=== PATIENT | female | born 1950 | race Caucasian/White ===

== ENCOUNTER 2018-04-29 13:28 | Emergency (ER) | payer MEDICARE, MEDICAID ==
[~2018-04-29] VITALS: Ht 162.6 cm; Wt 81.6 kg
[2018-04-29 13:30] VITALS: BP_SYST 210
--- NOTE | 2018-04-29 13:30 | NUR ---
Patient triaged and placed in waiting room. VSS and patient appears in no acute distress at this time. Accompanied by SELF, awaiting available bed, and MD notified of need for MSE.
--- NOTE | 2018-04-29 15:05 | NUR ---
Patient to ER bed 2 to gown for evaluation. Side rails up. Report given to Pee MONACO.
--- NOTE | 2018-04-29 15:15 | NUR ---
Pt presents to ER c/o vomiting, abdominal pain, and diarrhea since yesterday. Pt reports current pain level 5/10 on pain scale. Pt reports increased stress at the moment pertaining to her family. Pt denies chest pain and sob. Pt AOX4, ambulatory, no signs of respiratory distress, respirations even and unlabored, speaking full sentences.
[2018-04-29 16:20] LABS: CREATININE 0.85 mg/dL (0.55-1.30); POTASSIUM 4.3 mmol/L (3.5-5.1)
[2018-04-29 16:24] LABS: TOTAL BILIRUBIN 0.5 mg/dL (0.0-1.0)
[2018-04-29 16:34] LABS: HEMATOCRIT 45.6 % (36-48); HEMOGLOBIN 14.7 g/dL (12.0-16.0); MEAN CORPUSCULAR HEMOGLOBIN 28 pg (27-31); MEAN CORPUSCULAR HGB CONC 32 % (32-36); MEAN CORPUSCULAR VOLUME 86 fL (79.0-98.0); PLATELET COUNT (AUTO) 278 K/uL (130-430); RED BLOOD CELL COUNT(AUTO) 5.27 MIL/uL (4.2-6.2); WHITE BLOOD COUNT (AUTO) 9.2 K/uL (4.8-10.8)
[2018-04-29] MEDS ORDERED: NACL 0.9% 1,000 ML IV ONE (16:45)
--- NOTE | 2018-04-29 17:00 | NUR ---
# 22 gauge angiocath placed to LAC. Use of asceptic technique. Opsite placed over site. Blood return noted. Flushed with 10 cc of normal saline. No evidence of infiltration noted. Patient tolerated well.
--- NOTE | 2018-04-29 17:05 | NUR ---
Medicated per MD orders. IVF infusing with no s/s of infiltration at this time. Will continue to monitor
--- NOTE | 2018-04-29 17:10 | NUR ---
Dr. Thompson at bedside speaking with pt.
--- NOTE | 2018-04-29 17:19 | NUR ---
Dr. Thompson notified about pt's BP of 209/124 and HR 100. Verbal orders received to give 0.2mg of Clonidine PO.
[2018-04-29] MEDS ORDERED: cloNIDine HCL 0.1 MG TABLET ONE (17:25)
[2018-04-29] MEDS ORDERED: cloNIDine HCL 0.1 MG TABLET PO ONE (17:30)
[2018-04-29 17:44] LABS: BILIRUBIN,URINE NEGATIVE (NEGATIVE); BLOOD, URINE 1+ (NEGATIVE); CLARITY/URINE CLEAR (CLEAR); COLOR,URINE YELLOW (YELLOW); GLUCOSE,URINE NEGATIVE (NEGATIVE); KETONES,URINE NEGATIVE (NEGATIVE); LEUKOCYTE ESTERASE ,URINE NEGATIVE (NEGATIVE); NITRITE, URINE NEGATIVE (NEGATIVE); PH,URINE 7.5 (5.0-8.0); PROTEIN URINE NEGATIVE (NEGATIVE); UROBILINOGEN,URINE 0.2 (0.2-1.0)
[2018-04-29 17:49] LABS: BACTERIA,URINE FEW /HPF (None Seen); RBC,URINE 0-3 /HPF (0-3); WBC,URINE 0-3 /HPF (0-3)
[2018-04-29 17:52] LABS: BAND % (MANUAL) 1 % (0-6); BASOPHILS % (MANUAL) 0 % (0-2); EOSINOPHILS % (MANUAL) 0 % (0-7); LYMPHOCYTES % (MANUAL) 6 % (20-46); MONOCYTES % (MANUAL) 5 % (0-11)
--- NOTE | 2018-04-29 18:00 | NUR ---
Dr. Thompson at bedside speaking with pt discussing lab and diagnostic results.
[2018-04-29 18:25] VITALS: BP_SYST 201
--- NOTE | 2018-04-29 18:25 | NUR ---
Patient given written and verbal discharge instructions and verbalizes understanding. ER MD discussed with patient the results and treatment provided. Patient in stable condition. ID arm band removed. IV catheter removed intact and dressing applied, no active bleeding. Rx of Ativan & Zofran given. Patient educated on pain management and to follow up with PMD. Pain Scale 0/10. Opportunity for questions provided and answered. Medication side effect fact sheet provided. Dr. Thompson aware of pt's discharge vital signs and has given verbal orders to discharge pt as he states elevated BP may be due to anxiety and stress. Pt asymptomatic not complaining of any pain at the moment.
== END 2018-04-29 18:25 | disposition home or self-care (01) ==
LOC: SED 13:28
DX: K29.60 Other gastritis without bleeding (principal); F43.9 Reaction to severe stress, unspecified; F41.8 Other specified anxiety disorders
CPT/HCPCS: 36415; 80053; 81000; 83690; 85007; 85027; 96360; 99284; J7030

== ENCOUNTER 2018-09-24 08:11 | Emergency (ER) | payer MEDICARE, MEDICAID ==
[~2018-09-24] VITALS: Ht 162.6 cm; Wt 86.2 kg
[2018-09-24 08:11] VITALS: BP_SYST 203
--- NOTE | 2018-09-24 08:11 | NUR ---
BROUGHT BACK TO BED #3 AND TRIAGED. REPORT GIVEN TO XAVIER
--- NOTE | 2018-09-24 08:30 | NUR ---
ER Dr. Daniels at bedside examining patient.
--- NOTE | 2018-09-24 08:31 | NUR ---
Pt c/o n/v/d since midnight last night and "wasn't sure what she ate to make it happen." Pt also c/o right sided pain 11/21. No other complaints or injuries per pt or noted.
[2018-09-24] MEDS ORDERED: PIPERACILLIN/TAZO 3.38 GM in NS 50 ML IV ONE (09:00)
[2018-09-24] MEDS ORDERED: NACL 0.9% 1,000 ML IV ONE (09:00)
[2018-09-24] MEDS ORDERED: ONDANSETRON HCL 4 MG/2 ML VIAL IVP ONE (09:00)
[2018-09-24] MEDS ORDERED: PANTOPRAZOLE SODIUM 40 MG/VIAL (PROTONIX) IVP ONE (09:00)
[2018-09-24] MEDS ORDERED: PIPERACILLIN/TAZOBACTAM 3.375 GM/VIAL (ZOSYN) IV ONE (09:15)
[2018-09-24 09:19] LABS: HEMATOCRIT 46.2 % (36-48); HEMOGLOBIN 15.5 g/dL (12.0-16.0); MEAN CORPUSCULAR HEMOGLOBIN 28 pg (27-31); MEAN CORPUSCULAR HGB CONC 34 % (32-36); MEAN CORPUSCULAR VOLUME 85 fL (79.0-98.0); RED BLOOD CELL COUNT(AUTO) 5.46 MIL/uL (4.2-6.2); WHITE BLOOD COUNT (AUTO) 8.8 K/uL (4.8-10.8)
[2018-09-24 09:20] LABS: BASOPHILS % (AUTO) 0.3 % (0.0-2.0); EOSINOPHILS % (AUTO) 0.1 % (0.0-4.0); LYMPHOCYTES # (AUTO) 0.8 K/uL (1.0-5.5); LYMPHOCYTES % (AUTO) 8.6 % (20.5-51.5); MONOCYTES # (AUTO) 0.5 K/uL (0.0-1.0); MONOCYTES % (AUTO) 5.6 % (1.7-9.3); NEUTROPHILS # (AUTO) 7.5 K/uL (1.8-7.7); NEUTROPHILS % (AUTO) 85.4 % (40.0-70.0); PLATELET COUNT (AUTO) 234 K/uL (130-430)
--- NOTE | 2018-09-24 09:29 | NUR ---
Pt off unit to radiology
[2018-09-24 09:30] LABS: CALCIUM 8.7 mg/dL (8.4-11.0); CREATININE 0.96 mg/dL (0.55-1.30); POTASSIUM 3.9 mmol/L (3.5-5.1)
[2018-09-24 09:31] LABS: PROTHROMBIN TIME 10.5 SECS (9.5-12.5)
[2018-09-24 09:35] LABS: ALBUMIN 4.1 g/dL (3.4-4.8); TOTAL BILIRUBIN 0.7 mg/dL (0.0-1.0)
--- NOTE | 2018-09-24 09:43 | NUR ---
Pt return to unit from radiology. Pt tolerated well.
--- NOTE | 2018-09-24 10:00 | NUR ---
Pt states relief in nausea, no other complaints at this time.
[2018-09-24 10:44] LABS: BILIRUBIN,URINE NEGATIVE (NEGATIVE); BLOOD, URINE 1+ (NEGATIVE); CLARITY/URINE CLEAR (CLEAR); COLOR,URINE YELLOW (YELLOW); GLUCOSE,URINE NEGATIVE (NEGATIVE); KETONES,URINE NEGATIVE (NEGATIVE); LEUKOCYTE ESTERASE ,URINE NEGATIVE (NEGATIVE); NITRITE, URINE NEGATIVE (NEGATIVE); PH,URINE 6.5 (5.0-8.0); PROTEIN URINE TRACE (NEGATIVE); UROBILINOGEN,URINE 0.2 (0.2-1.0)
[2018-09-24] MEDS ORDERED: DIPHENOXYLATE HCL/ATROP SULF 2.5 MG TAB PO ONE (10:45)
[2018-09-24] MEDS ORDERED: cloNIDine HCL 0.1 MG TABLET PO ONE (10:45)
--- NOTE | 2018-09-24 10:45 | NUR ---
Pt noted with SBPs 180s, states, "It's normal for me because of anxiety. It's happened to me before. I take natural methods at home to lower BP." Pt given clonidine per MD order.
[2018-09-24 11:05] LABS: BACTERIA,URINE FEW /HPF (None Seen); MUCUS,URINE None Seen /LPF (None Seen); RBC,URINE 0-3 /HPF (0-3); WBC,URINE 0-3 /HPF (0-3)
[2018-09-24 12:01] VITALS: BP_SYST 184
--- NOTE | 2018-09-24 12:05 | NUR ---
Patient given written and verbal discharge instructions and verbalizes understanding. ER MD discussed with patient the results and treatment provided. Patient in stable condition. MD also okay with patient's elevated BP, which patient states "it is normal" for her and she uses "natural methods" to treat it at home. ID arm band removed. IV catheter removed intact and dressing applied, no active bleeding. Rx of norco, lomotil, and zofran given. Patient educated on pain management and to follow up with PMD. Pain Scale 0/10. Opportunity for questions provided and answered. Medication side effect fact sheet provided.
== END 2018-09-24 12:05 | disposition home or self-care (01) ==
LOC: SED 08:11
DX: K52.9 Noninfective gastroenteritis and colitis, unspecified (principal)
CPT/HCPCS: 36415; 71045; 74176; 80053; 81000; 83605; 83690; 85025; 85610; 87040; 93005; 96365; 96375; 99284; C9113; J2405; J2543; J7030

== ENCOUNTER 2020-03-29 12:19 | Emergency (ER) | payer MEDICARE, MEDICAID ==
[~2020-03-29] VITALS: Ht 160 cm; Wt 81.6 kg
[2020-03-29 12:34] VITALS: BP_SYST 207
--- NOTE | 2020-03-29 12:55 | NUR ---
Pt in [facility] with side rails up and gown placed.
--- NOTE | 2020-03-29 12:55 | NUR ---
pt to room 1, and placed in [facility]. Pt is alert and oriented.
--- NOTE | 2020-03-29 13:11 | NUR ---
ER Dr. Randall at bedside examining patient.
[2020-03-29 14:05] LABS: EOSINOPHILS # (AUTO) 0.1 K/uL (0.0-0.4); EOSINOPHILS % (AUTO) 1.2 % (0.0-4.0); HEMATOCRIT 42.4 % (36-48); HEMOGLOBIN 14.3 g/dL (12.0-16.0); LYMPHOCYTES # (AUTO) 1.7 K/uL (1.0-5.5); LYMPHOCYTES % (AUTO) 35.1 % (20.5-51.5); MEAN CORPUSCULAR HEMOGLOBIN 29 pg (27-31); MEAN CORPUSCULAR HGB CONC 34 % (32-36); MEAN CORPUSCULAR VOLUME 85 fL (79.0-98.0); MONOCYTES # (AUTO) 0.3 K/uL (0.0-1.0); MONOCYTES % (AUTO) 5.9 % (1.7-9.3); NEUTROPHILS # (AUTO) 2.7 K/uL (1.8-7.7); NEUTROPHILS % (AUTO) 56.8 % (40.0-70.0); PLATELET COUNT (AUTO) 227 K/uL (130-430); RED BLOOD CELL COUNT(AUTO) 4.98 MIL/uL (4.2-6.2); RED CELL DISTRIBUTION WIDTH 14.4 % (9.0-15.0); WHITE BLOOD COUNT (AUTO) 4.8 K/uL (4.8-10.8)
[2020-03-29 14:10] VITALS: BP_SYST 174
--- NOTE | 2020-03-29 14:13 | NUR ---
Patient given written and verbal discharge instructions and verbalizes understanding. ER MD discussed with patient the results and treatment provided. Patient in stable condition. ID arm band removed. No Rx given. Patient educated on pain management and to follow up with PMD. Pain Scale 0/10. Opportunity for questions provided and answered. Medication side effect fact sheet provided.
[2020-03-29 14:15] LABS: ALBUMIN 3.9 g/dL (3.4-4.8); CALCIUM 8.5 mg/dL (8.4-11.0); CREATININE 1.09 mg/dL (0.55-1.30); POTASSIUM 3.2 mmol/L (3.5-5.1); TOTAL BILIRUBIN 0.5 mg/dL (0.0-1.0)
[2020-03-29 14:22] LABS: INR 1.1 (0.8-1.2); PROTHROMBIN TIME 10.7 SECS (9.5-12.5)
== END 2020-03-29 14:10 | disposition home or self-care (01) ==
LOC: SED 12:19
DX: S01.512A Laceration without foreign body of oral cavity, initial encounter (principal); K92.2 Gastrointestinal hemorrhage, unspecified; I10 Essential (primary) hypertension; X58.XXXA Exposure to other specified factors, initial encounter; Y93.89 Activity, other specified; Y92.89 Other specified places as the place of occurrence of the external cause; Y99.8 Other external cause status
CPT/HCPCS: 36415; 80053; 85025; 85610-TC; 85730-TC; 99283